=== PATIENT | male | born 1970 ===

== ENCOUNTER 2024-06-23 13:47 | Outpatient (CLI) | payer MEDICAID, SELFPAY ==
[2024-06-23 14:38] LABS: TSH (W/Ref FT4) 2.51 uIU/mL (0.36-3.74); Vitamin B12 651 pg/mL (193-986)
== END 2024-06-23 13:48 | disposition home or self-care (01) ==
LOC: LBO 13:51
PROVIDERS: PCP Family Medicine; Visit Provider Nurse Practitioner Adult Health
DX: R41.89 Other symptoms and signs involving cognitive functions and awareness (principal)
CPT/HCPCS: 36415; 82607; 84443

== ENCOUNTER 2024-08-16 01:46 | Outpatient (CLI) | payer MEDICAID, SELFPAY ==
--- NOTE | 2024-08-16 08:09 | DI.MRI_ITS ---
Exam(s) MR BRAIN WO EXAM: MR BRAIN WO CLINICAL HISTORY: memory changes,COGNITIVE DEFICITS,R41.89 TECHNIQUE: Multiplanar multisequence MRI of the brain was performed. COMPARISON: No exams were available for comparison FINDINGS: The examination is limited due to patient motion artifact. VENTRICLES AND EXTRA AXIAL SPACES: Normal in size and morphology for the patient's age. MIDLINE SHIFT: None. CEREBRAL PARENCHYMA: No focus of restricted diffusion to suggest acute infarct. No space-occupying le emily identified. HEMORRHAGE: None. BRAINSTEM/CEREBELLUM: Normal. CALVARIUM: Normal. VISUALIZED PARANASAL SINUSES/MASTOIDS:There is mild mucosal thickening in the sinuses and a small muc ous retention cyst or polyp in the left maxillary sinus. [place] OF PAINTING: Normal flow void. PITUITARY GLAND: Unremarkable. OTHER FINDINGS: There is artifact seen on the apex of the skull. IMPRESSION: 1. No acute intracranial process. No evidence of an acute territorial infarct. 2. Mild paranasal sinusitis. 3. Exam is limited by patient motion artifact and artifact seen along the apex of the skull. DATA REPOSITORY:
== END 2024-08-16 02:06 ==
LOC: DI 01:46
PROVIDERS: PCP Family Medicine; Visit Provider Nurse Practitioner Adult Health
DX: J34.89 Other specified disorders of nose and nasal sinuses (principal); R41.89 Other symptoms and signs involving cognitive functions and awareness
CPT/HCPCS: 70551